=== PATIENT | male | born 1980 ===

== ENCOUNTER 2021-05-17 17:53 | Emergency (ER) ==
[~2021-05-17] VITALS: Ht 182.9 cm; Wt 88.2 kg
[2021-05-17] MEDS ORDERED: METH-1177 PO (18:12)
[2021-05-18] MEDS ORDERED: ONDANSETRON 4 MG ORAL DISINTEGRATING TAB PO ONE (07:45)
== END 2021-05-18 09:44 | disposition home or self-care (01) ==
LOC: M ED 17:53
DX: F11.23 Opioid dependence with withdrawal (principal); Z88.5 Allergy status to narcotic agent
CPT/HCPCS: 82550; 99283; Q0162